=== PATIENT | female | born 1960 | race Caucasian/White ===

== ENCOUNTER → 2023-10-16 09:00 | Outpatient (REF) | payer MEDICARE, OTHER, SELFPAY | LOC: HWWDC 09:00 | PROVIDERS: ATTENDING PHYSICIAN Obstetrics & Gynecology Gynecology; FAMILY PHYSICIAN Family Medicine | DX: Z12.31 Encounter for screening mammogram for malignant neoplasm of breast (principal) | CPT/HCPCS: 77063; 77067 ==

== ENCOUNTER → 2024-05-13 07:50 | Outpatient (REF) | payer OTHER, SELFPAY | LOC: EMG 07:50 | PROVIDERS: ATTENDING PHYSICIAN Family Medicine | DX: G62.9 Polyneuropathy, unspecified (principal); R20.0 Anesthesia of skin | CPT/HCPCS: 95886; 95913 ==

== ENCOUNTER → 2024-10-21 09:16 | Outpatient (REF) | payer OTHER, SELFPAY | LOC: HWWDC 09:16 | PROVIDERS: ATTENDING PHYSICIAN Obstetrics & Gynecology Gynecology; FAMILY PHYSICIAN Family Medicine | DX: Z12.31 Encounter for screening mammogram for malignant neoplasm of breast (principal) | CPT/HCPCS: 77063; 77067 ==

== ENCOUNTER → 2024-11-19 12:10 | Outpatient (REF) | payer OTHER, SELFPAY | LOC: HWRAD 12:10 | PROVIDERS: ATTENDING PHYSICIAN Nurse Practitioner Adult Health; FAMILY PHYSICIAN Family Medicine | DX: R39.9 Unspecified symptoms and signs involving the genitourinary system (principal) | CPT/HCPCS: 76770 ==

== ENCOUNTER 2024-11-21 11:40 | Emergency (ER) | payer OTHER, SELFPAY ==
[2024-11-21 11:41] VITALS: BP 177/108
[2024-11-21 12:04] LABS: Hematocrit 37.5 % (37.0-47.0); Hemoglobin 13.0 g/dL (12.0-16.0); Mean Corp Hgb Conc. 34.7 g/dL (33.0-37.0); Mean Corpuscular Volume 83.1 fL (81.0-99.0); Nucleated Red Blood Cells % 0 %; Platelet Count 252 10^3/uL (130-400); Red Cell Dist. Width 13.0 % (11.5-14.5)
[2024-11-21 12:08] LABS: Urine Character Clear (Clear)
[2024-11-21 12:29] LABS: ALT (SGPT) 15 U/L (0-35); AST (SGOT) 21 U/L (14-36); Albumin 4.7 g/dl (3.5-5.0); Alkaline Phosphatase 59 U/L (38-126); Blood Urea Nitrogen 6 mg/dl (7-17); Calcium 9.9 mg/dl (8.4-10.2); Carbon Dioxide 26 mmol/L (22-30); Chloride 100 mmol/L (98-107); Glucose 123 mg/dl (70-99); Potassium 4.2 mmol/L (3.5-5.1); Sodium 134 mmol/L (135-145); Total Protein 7.4 g/dl (6.3-8.2); eGFR > 60.00
[2024-11-21 12:36] LABS: Urine Red Blood Cell 0-2 /HPF (0-2)
[2024-11-21 14:04] VITALS: BP 141/81
--- NOTE | 2024-11-21 14:27 | ED.GENMED ---
History of Present Illness
General
Chief Complaint: Flank Pain
Source: patient and physician
Time Seen by Provider: 11/21/24 13:02
History of Present Illness
History of Present Illness:
64-year-old female with past medical history of insulin-dependent diabetes, recently diagnosed with a right-sided distal ureteral stone presenting to the ER at the request of the primary care provider due to continued pain with concern for size of
the stone and needing for urgent surgical evaluation. Patient states that about 1 month ago her symptoms all started, has been on 3 separate antibiotics stating that it was suspected she had a urinary tract infection as the cause of her symptoms
but states she never felt any better with the antibiotics. Patient states she had an outpatient ultrasound done 2 days ago which showed a very large stone and that her primary care provider was concerned that the stone would not pass on its own.
Patient does have a follow-up appointment already scheduled with urology for tomorrow morning. Currently she states her pain is tolerable and is otherwise denying any urinary symptoms, fevers, chills, rigors, nausea or vomiting. She has not been
on an antibiotic for at least 1 week
Past History
Past History
ED Past Medical History: IDDM and Other (Previous kidney stones)
ED Past Surgical History: and Orthopedic
Social History
Tobacco: Non-smoker
Alcohol: Occasional
Drug: None
Personal:
Living: with family
Review of Systems
Review of Systems
All Other Systems: ROS reviewed and negative except as documented in HPI and ROS
Phy Exam
Physical Exam
Physical Exam:
GENERAL: Alert , in no apparent distress
EYE: clear conjunctiva b/l
HEAD: NCAT
ENT: o/p clr, mmm.
CARDIAC: Regular rate and rhythm .
LUNGS: Clear breath sounds bilaterally, no acute respiratory distress, no wheezes/rales/rhonchi
ABDOMEN: Soft, without focal tenderness, no r/g, no cvat
NEUROLOGICAL: Alert and oriented
SKIN: Warm and dry, skin intact.
MUSCULOSKELETAL: No edema, well perfused.
PSYCH: Normal and appropriate interaction.
Scores
Heart Failure Risk
Heart Failure Risk Score: Not Applicable
Heart Score for Chest Pain Patients
STEMI patient?: Not applicable
Withdrawal Assessment of Alcohol
Withdrawal Assessment Completed?: Not applicable
Course
Orders/Labs/Results
Orders:
Orders
11/21/24 11:57
Complete Blood Count/With Diff Urgent
Comprehensive Metabolic Panel Urgent
Urinalysis Reflex To Culture Urgent
Date Specimen was Collected: 11/21/24
Time Specimen was Collected: 11:46
Urine Microscopic Reflex Cult Urgent
Urine Culture Urgent
[place] Source: U
Specimen Description:
Date Specimen was Collected: 11/21/24
Time Specimen was Collected: 11:46
11/21/24 13:24
CT Abd/pel Without Iv Or Oral Urgent
Comment:
Reason For Exam: large right UVJ stone, pain
Abnormal Lab Results
11/21/24
11:57
Sodium 134 L mmol/L
(135-145)
BUN 6 L mg/dl
(7-17)
Creatinine 0.5 L mg/dL
(0.6-1.0)
Glucose 123 H mg/dl
(70-99)
Ur Occult Blood Reflex 2+ A
(Negative)
Leukocyte Esterase Rfl 2+ A
(Negative)
Urine Bacteria (Reflex) Few A
(Negative)
Urine Albumin (Reflex) 1+ A
(Neg - Trace)
11/21/24 11:57
11/21/24 11:57
Vital Signs
Initial and Last Documented VS:
Initial Vital Signs
Temp Pulse Resp BP Pulse Ox
98.8 F 105 18 177/108 97
11/21/24 11:41 11/21/24 11:41 11/21/24 11:41 11/21/24 11:41 11/21/24 11:41
Last Documented Vital Signs
Temp Pulse Resp BP Pulse Ox
98.8 F 94 16 141/81 98
11/21/24 11:41 11/21/24 14:04 11/21/24 14:04 11/21/24 14:04 11/21/24 14:34
MDM/Problems Addressed
Differential Diagnosis Includes:
Known ureteral stone
Less concern for UTI/infected stone given duration of symptoms combined with lack of fever and normal white blood cell count
Cystitis/pyelonephritis
Acute kidney injury
MDM/Problems Addressed:
64-year-old female presenting to the ER at the request of her primary care provider for a large distal ureteral stone. Patient had ultrasound done 2 days ago showing a 0.7 cm x 1 cm stone at the right distal UVJ. Labs here show no leukocytosis and
normal renal function, urine without current signs of infection. Will discuss with urology for treatment and disposition planning. Patient declining anything for symptoms presently.
*Radiology
Radiology exam reviewed: radiology read reviewed
*Pulse Oximetry
SaO2: 98
Oxygen Mode of Delivery: Room air
Patient hypoxic: no
*Critical Care Note
Total Time (30-74mins, 75-104mins- exclusive of procedures): Not Applicable
Comment
Comment:
Case discussed with urology who states that as long as patient remains afebrile, pain well-controlled, no fevers, labs reassuring that patient can be discharged home on Flomax and with pain medicine to be used as needed, follow-up tomorrow morning
where she will have surgical planning initiated. They did recommend we get a CT prior to discharge to help with surgical planning as well as to assess for any further complication
I also notified primary care provider about this treatment plan.
Patient Management
Social determinants of health affecting care: Living situation, Strong social support and Other (outpatient follow-up already arranged for tomorrow)
Discussion with other providers: PCP and Media Buyer
ED Attending Note
-
Portions of this chart may have been created with voice recognition software.� Occasional wrong word or��sound alike� substitutions may have occurred due to the inherent limitations of voice recognition software.
Discharge Plan
Departure
Patient Disposition: Home (Routine Discharge)
Date of Disposition: 11/21/24
Time of Disposition: 14:44
Patient with high blood pressure during this ER visit?: Yes
Discharge Problem:
Ureterolithiasis
Instructions: Kidney Stones (DC)
Prescriptions:
New
tamsulosin [Flomax] 0.4 mg capsule
0.4 mg PO DAILY Qty: 10 0RF
oxycodone-acetaminophen [Percocet] 5-325 mg tablet
1 tab PO Q6HPRN PRN (Reason: pain) Qty: 6 0RF
Referrals:
Delicia Rodriguez MD [Family Provider, Family Practice]
Sin Capps MD [Active, Urology]
Referral Note: Tomorrow
Interventions
Interventions:
*Risk Screen - Suicide Last Done: 11/21/24 11:41
*General Assessment Last Done: 11/21/24 11:41
*Neglect/Abuse Screening Last Done: 11/21/24 11:41
*ED- Fall Risk Assessment Last Done: 11/21/24 13:55
*Nursing Disposition Last Done: 11/21/24 15:02
VP-Ksqbqg-Huxowgzvky Assessment Last Done: 11/21/24 13:55
ED-Female Genitourinary Assessment Last Done: 11/21/24 13:55
Discharge Date and Time
Discharge Date/Time: 11/21/24 15:03
Print Language: URUGUAYAN
== END 2024-11-21 15:03 | disposition home or self-care (01) ==
LOC: EMR 11:40
PROVIDERS: Emergency Medicine; EMERGENCY PHYSICIAN Emergency Medicine; FAMILY PHYSICIAN Family Medicine
DX: N20.2 Calculus of kidney with calculus of ureter (principal); E11.9 Type 2 diabetes mellitus without complications; Z79.4 Long term (current) use of insulin
CPT/HCPCS: 99284; 74176; 80053; 81003; 81015; 85025; 87077; 87086

== ENCOUNTER → 2024-11-25 08:00 | Outpatient (REF) | payer OTHER, SELFPAY ==
[2024-11-25 13:41] VITALS: BMI 26.9
== END ==
LOC: SDSPAT 08:00
PROVIDERS: ATTENDING PHYSICIAN Specialist; FAMILY PHYSICIAN Family Medicine
DX: N20.0 Calculus of kidney (principal)
CPT/HCPCS: 36415; 93005

== ENCOUNTER → 2024-12-16 12:00 | Outpatient (REF) | payer OTHER, SELFPAY | LOC: HWRAD 12:00 | PROVIDERS: ATTENDING PHYSICIAN Family Medicine | DX: N39.0 Urinary tract infection, site not specified (principal); N20.0 Calculus of kidney; N13.30 Unspecified hydronephrosis | CPT/HCPCS: 76770 ==

== ENCOUNTER 2025-01-18 12:06 | Emergency (ER) | payer OTHER, SELFPAY ==
[2025-01-18 12:08] VITALS: BP 185/108
[2025-01-18 12:41] LABS: Hematocrit 38.6 % (37.0-47.0); Hemoglobin 13.2 g/dL (12.0-16.0); Mean Corp Hgb Conc. 34.2 g/dL (33.0-37.0); Mean Corpuscular Volume 85.8 fL (81.0-99.0); Nucleated Red Blood Cells % 0 %; Platelet Count 253 10^3/uL (130-400); Red Cell Dist. Width 12.6 % (11.5-14.5)
[2025-01-18 12:46] LABS: Urine Character Clear (Clear)
[2025-01-18 12:55] LABS: ALT (SGPT) 15 U/L (0-35); AST (SGOT) 16 U/L (14-36); Albumin 4.7 g/dl (3.5-5.0); Alkaline Phosphatase 52 U/L (38-126); Blood Urea Nitrogen 4 mg/dl (7-17); Calcium 9.7 mg/dl (8.4-10.2); Carbon Dioxide 26 mmol/L (22-30); Chloride 96 mmol/L (98-107); Glucose 228 mg/dl (70-99); Potassium 4.2 mmol/L (3.5-5.1); Sodium 129 mmol/L (135-145); Total Protein 7.0 g/dl (6.3-8.2); eGFR > 60.00
--- NOTE | 2025-01-18 13:02 | ED.GENMED ---
History of Present Illness
General
Chief Complaint: Anxiety
Time Seen by Provider: 01/18/25 13:02
History of Present Illness
History of Present Illness:
FOCUSED PAST MEDICAL HISTORY
- IDDM, anxiety
REVIEW OF OLD RECORDS
- The patient was seen here in November and later found to have an E. coli UTI based on urine culture
Note:
CHIEF COMPLAINT(S)
Blood sugar dysregulation, recurrent urinary tract infections (UTI), anxiety, depression, insomnia, and lack of appetite.
HISTORY OF PRESENT ILLNESS
The patient is a 64-year-old female presenting with concerns regarding significant fluctuations in blood glucose levels. Her recent home blood glucose readings have been erratic, with episodic hypoglycemia experienced during nighttime. She reports
long-standing management with insulin glargine (Lantus) at a dose of 14 units, down from 16 units due to previous episodes of hypoglycemia. The patient has been experiencing difficulty sleeping at night due to hypoglycemia, despite modifications in
insulin dosage.
In addition to her diabetes management concerns, the patient reports symptoms of a urinary tract infection, which has been persistent since October. Recent urinalysis, conducted within the past week, was followed by treatment with Augmentin. She has
experienced recurrent UTIs and notes that symptoms have persisted despite antibiotic treatment. She has also been seen by Dr. Hunt who prescribed an estrogen cream.
The patient is also experiencing heightened anxiety and depression, which she attributes to her inability to sleep and lack of appetite. She has been taking citalopram 20 mg and recently had her dose of buspirone increased to 10 mg twice daily.
Despite medication adjustments, she reports no improvement in sleep quality or depressive symptoms.
She also reports concerns of an upcoming CAT scan of the abdomen and pelvis which is ordered with oral contrast and she does not feel that she can drink this. She also does not feel that she can have fasting blood work performed given the recent
hypoglycemic episodes.
PAST MEDICAL AND SURGICAL HISTORY
- History of kidney stones
CHRONIC MEDICAL CONDITIONS SIGNIFICANTLY AFFECTING CARE
- Diabetes, currently managed with insulin glargine (Lantus)
- Anxiety and depression, treated with citalopram and buspirone
MEDICATIONS
- Insulin glargine (Lantus) 14 units at night
- Citalopram 20 mg daily
- Buspirone 10 mg twice daily
- Augmentin for current UTI
REVIEW OF SYSTEMS
- General: Insomnia, anxiety, lack of appetite
- Endocrine: Blood glucose instability, nocturnal hypoglycemia
- Urological: Persistent symptoms of urinary tract infection
PHYSICAL EXAM
General: Alert, no acute distress.
Skin: Warm, dry.
Head: Normocephalic, atraumatic.
Neck: Supple, trachea midline.
Eye, Ears, Nose, Mouth, and Throat: Oral mucosa moist.
Cardiovascular: Normal peripheral perfusion, No edema.
Respiratory: Respirations are non-labored.
Gastrointestinal: Abdomen nondistended.
Back: Normal range of motion, Normal alignment.
Musculoskeletal: Normal range of motion, normal strength.
Neurological: Alert and oriented to person, place, time, and situation, No focal neurological deficit observed.
Psychiatric: Cooperative, appropriate mood & affect.
PROBLEM LIST
Acute:
- Blood sugar dysregulation
- Persistent urinary tract infection
- Insomnia, anxiety, depression
PLAN
- The patient has an upcoming appointment with an river boat captain in two weeks for further management of diabetes.
- Consider symptom management for UTI, including possible prescription of a symptomatic treatment such as phenazopyridine.
- Encourage close monitoring of blood glucose levels, especially overnight, to avoid further hypoglycemia.
- Discuss potential modifications in diabetes medications during the endocrinology appointment.
- Address mental health concerns; refer to a psychiatrist for further evaluation and management, exploring potential therapeutic adjustments.
- Discuss short-term sleep aids as an option if insomnia persists and assess the risks versus benefits, noting patient preference against long-term benzodiazepine use.
DIFFERENTIAL DIAGNOSIS
The Differential Diagnosis includes, in no particular order and is not limited to:
- Poorly controlled diabetes mellitus
- Recurrent urinary tract infection resistant to treatment
- Diabetic nephropathy contributing to recurrent UTI
- Medication side effects, particularly from psychiatric medications
- Anxiety disorder
- Major depressive disorder
- Adjustment disorder with anxiety and depressive symptoms
- Sleep disorder due to medical illness
- Insulinoma (unlikely but considered due to hypoglycemia)
- Secondary insomnia due to anxiety/depression
Disposition:
SUMMARY OF ENCOUNTER
The patient, a 64-year-old female, presented to the emergency department due to recurring symptoms of blood sugar dysregulation, ongoing urinary tract infection, and persistent insomnia, anxiety, and depression. She reported significant nighttime
hypoglycemia despite modifications in her insulin regimen, managed with insulin glargine. She is also experiencing sodium dysregulation, with current sodium levels at 129 mmol/L, down from her previous level of 134 mmol/L. The patient has a history
of recurrent UTIs, currently being treated with antibiotics (Augmentin) and was recently prescribed topical estrogen by a urologist due to possible bacterial colonization. A hobson concern was her upcoming fasting blood tests and CT scan with barium,
which she fears may exacerbate her current symptoms. Recommendations were made to possibly adjust her insulin sliding scale in the evening to manage nocturnal hypoglycemia better. The patient was advised to monitor her water intake due to low sodium
levels.
ASSESSMENT
- Blood sugar instability possibly related to insulin management.
- Low sodium level likely related to high water intake.
- Recurrent urinary tract infections with possible bacterial colonization.
- Management of anxiety and depression not fully effective.
PLAN
- Adjust the insulin sliding scale to avoid nocturnal hypoglycemia.
- Monitor and potentially reduce water intake to manage low sodium levels.
- Continue the current antibiotic therapy for the urinary tract infection.
- Begin using the prescribed estrogen topical treatment as recommended by the urologist.
- Refer for a psychiatry and endocrinology consultation to better manage mental health and diabetes care.
- Recommend using [id number] doxylamine (Unisom) for temporary sleep aid.
- Educate on the importance of not fasting for upcoming lab tests unless absolutely necessary.
INDEPENDENT REVIEW OF LABS AND INTERPRETATION OF TESTS
- My independent review of BMP indicates current sodium level at 129 mmol/L.
PATIENT EDUCATION AND COUNSELING
The patient was advised on the importance of managing water intake to prevent further decrease in sodium levels. Discussions occurred regarding the role and potential side effects of using topical estrogen for managing recurrent UTIs. The patient
was informed about the management options for insomnia and warned about the addictive nature of benzodiazepines, recommending doxylamine instead as an OTC sleep aid.
FOLLOW-UP INSTRUCTIONS
The patient is encouraged to follow up with an river boat captain and psychiatrist as soon as possible for comprehensive management of her conditions. She was also advised to get her blood sugar levels and sodium levels re-evaluated with her primary
care provider.
MEDICATION RECONCILIATION
- Insulin glargine (Lantus) 14 units at night
- Citalopram 20 mg daily
- Buspirone 10 mg twice daily
- Augmentin for current UTI
- Estradiol topical cream as prescribed by urologist
- Recommendation to use doxylamine (Unisom) for temporary insomnia relief
MEDICAL DECISION MAKING
- Number and Complexity of Problems Addressed: Chronic conditions affecting care include diabetes, recurrent urinary tract infections, anxiety, and depression management. Differential diagnosis includes poorly controlled diabetes mellitus, recurrent
urinary tract infection resistant to treatment, diabetic nephropathy, medication side effects, anxiety disorder, and sleep disorder due to medical illness.
- Data:
Category 1:
Clinical tests considered and adjusted included sodium level monitoring and insulin dosage to address blood sugar discrepancies.
- Risk:
Prescription medication management was necessary to address blood sugar and depression concerns. Escalation of care including admission/observation was considered given the complexity and risk of the patients presenting complaint, exam findings, and
her underlying comorbidities. However, ultimately, the patient is considered safe for outpatient management with close follow-up. This decision was based on the current stability of her condition and the pending specialist appointments for more
targeted management.
LABS
- White count 4.4, hemoglobin 13.2�no significant change from 2 months ago, sodium slightly low at 129, glucose 228, urinalysis shows 1+ blood but no clear sign of infection
Past History
Past History
ED Past Medical History: IDDM and Other (Previous kidney stones)
ED Past Surgical History: and Orthopedic
Social History
Tobacco: Non-smoker
Alcohol: Occasional
Drug: None
Personal:
Living: with family
Phy Exam
Physical Exam
Physical Exam:
See HPI
Course
Orders/Labs/Results
Orders:
Orders
01/18/25 12:19
CBC/With Diff [Complete Blood Count/With Diff] Urgent
CMP [Comprehensive Metabolic Panel] Urgent
01/18/25 12:25
Urinalysis Reflex To Culture Urgent
Date Specimen was Collected: 01/18/25
Time Specimen was Collected: 12:14
Urine Microscopic Reflex Cult Urgent
Abnormal Lab Results
01/18/25 01/18/25
12:19 12:25
WBC 4.4 L 10^3/uL
(4.8-10.8)
Sodium 129 L mmol/L
(135-145)
Chloride 96 L mmol/L
(98-107)
BUN 4 L mg/dl
(7-17)
Creatinine 0.4 L mg/dL
(0.6-1.0)
Glucose 228 H mg/dl
(70-99)
Ur Occult Blood Reflex 1+ A
(Negative)
Urine Bacteria (Reflex) Few A
(Negative)
Urine Glucose 4+ A
(Negative)
Urine Albumin (Reflex) 1+ A
(Neg - Trace)
01/18/25 12:19
01/18/25 12:19
Vital Signs
Initial and Last Documented VS:
Initial Vital Signs
Temp Pulse Resp BP Pulse Ox
36.8 C 96 18 185/108 97
01/18/25 12:08 01/18/25 12:08 01/18/25 12:08 01/18/25 12:08 01/18/25 12:08
Last Documented Vital Signs
Temp Pulse Resp BP Pulse Ox
36.8 C 96 18 185/108 97
01/18/25 12:08 01/18/25 12:08 01/18/25 12:08 01/18/25 12:08 01/18/25 13:04
*Pulse Oximetry
SaO2: 97
Patient hypoxic: no
*Critical Care Note
Total Time (30-74mins, 75-104mins- exclusive of procedures): Not Applicable
ED Attending Note
-
Portions of this chart may have been created with voice recognition software.� Occasional wrong word or��sound alike� substitutions may have occurred due to the inherent limitations of voice recognition software.
Discharge Plan
Departure
Patient Disposition: Home (Routine Discharge)
Date of Disposition: 01/18/25
Time of Disposition: 13:46
Patient with high blood pressure during this ER visit?: Yes
Discharge Problem:
Anxiety, Labile blood glucose, Dysuria
Instructions: Anxiety, Adult (DC), BLOOD PRESSURE
Prescriptions:
New
phenazopyridine [Pyridium] 200 mg tablet
200 mg PO TID PRN (Reason: Pain) Qty: 6 0RF
No Action
tamsulosin [Flomax] 0.4 mg capsule
0.4 mg PO DAILY Qty: 10 0RF
oxycodone-acetaminophen [Percocet] 5-325 mg tablet
1 tab PO Q6HPRN PRN (Reason: pain) Qty: 6 0RF
amoxicillin-pot clavulanate 875-125 mg tablet
1 tab PO BID 7 Days Qty: 14 0RF
Referrals:
Margaret Bazan CRNP [Family Provider, Internal Medicine]
Activity Restrictions/Additional Instructions:
Follow-up with river boat captain. I also think would be good you do for you to see a psychiatrist/behavioral therapist. I am sending a prescription for Pyridium to your pharmacy. Regarding insomnia you could try [id number] doxylamine
(Unisom). Given your concerns of low blood sugars at night you could decrease the sliding scale dosing before bed and continue the current Lantus dosing for now. Sodium level is slightly low at 129�I recommend decreasing the water intake.
Interventions
Interventions:
*Risk Screen - Suicide Last Done: 01/18/25 12:08
*General Assessment Last Done: 01/18/25 12:08
*Neglect/Abuse Screening Last Done: 01/18/25 12:08
*ED- Fall Risk Assessment Last Done: 01/18/25 13:25
*ED COVID-19 Vaccine History Last Done: 01/18/25 12:08
*ED Influenza Vaccine History Last Done: 01/18/25 12:08
ED-Psychological Assessment Last Done: 01/18/25 13:25
Discharge Date and Time
Print Language: THAI
[2025-01-18 13:32] LABS: Urine Red Blood Cell 0-2 /HPF (0-2); Urine Squamous Cell 0-2 /LPF (Few)
== END 2025-01-18 13:50 | disposition home or self-care (01) ==
LOC: EMR 12:06
PROVIDERS: EMERGENCY PHYSICIAN Emergency Medicine; FAMILY PHYSICIAN Nurse Practitioner Adult Health
DX: F41.9 Anxiety disorder, unspecified (principal); E11.649 Type 2 diabetes mellitus with hypoglycemia without coma; R30.0 Dysuria; E87.1 Hypo-osmolality and hyponatremia; R03.0 Elevated blood-pressure reading, without diagnosis of hypertension; F32.A Depression, unspecified; G47.00 Insomnia, unspecified; Z79.4 Long term (current) use of insulin; Z87.440 Personal history of urinary (tract) infections
CPT/HCPCS: 99283; 80053; 81003; 81015; 85025

== ENCOUNTER → 2025-01-23 13:07 | Outpatient (REF) | payer OTHER, SELFPAY | LOC: RAD 13:07 | PROVIDERS: ATTENDING PHYSICIAN Nurse Practitioner Adult Health; FAMILY PHYSICIAN Family Medicine | DX: R39.9 Unspecified symptoms and signs involving the genitourinary system (principal); N20.0 Calculus of kidney; R10.30 Lower abdominal pain, unspecified | CPT/HCPCS: 74178; Q9967 ==